=== PATIENT | male | born 1995 | race Caucasian/White ===

== ENCOUNTER → 2019-07-31 13:11 | Outpatient (BNVA) | payer OTHER, SELFPAY | PROVIDERS: Family Provider Nurse Practitioner Family; PCP Nurse Practitioner Family; Visit Provider Nurse Practitioner Family | DX: M79.671 Pain in right foot (principal) | CPT/HCPCS: 73630 ==

== ENCOUNTER → 2020-01-08 09:59 | Outpatient (BNVA) | payer OTHER, SELFPAY | PROVIDERS: Family Provider Nurse Practitioner Family; PCP Nurse Practitioner Family; Visit Provider Family Medicine | DX: M79.641 Pain in right hand (principal); S62.339A Displaced fracture of neck of unspecified metacarpal bone, initial encounter for closed fracture; M79.642 Pain in left hand | CPT/HCPCS: 73130 ==